=== PATIENT | male | born 1965 | race African-American/Black ===

== ENCOUNTER 2022-02-26 20:15 | Inpatient (IN) ==
--- NOTE | 2022-02-26 20:37 | Emergency Department Note ---
Impression & Plan Syncope, Acute head trauma, Anemia, YEVGENIY (acute kidney injury), Elevated liver enzymes ED Provider Note NAME: RASHIDA [id number] VINCENT AGE: 56 SEX: M : 1965 ARRIVES VIA: Ambulance INFORMANT: [Patient] ED PROVIDER(S): [Tiago Roberts MD] CHIEF COMPLAINT: Syncope, abnormal labs HISTORY OF PRESENT ILLNESS: The patient is a 56-year-old male [facility] a few days and he has not had a great appetite. The patient was standing today doing some work when he apparently fell backwards and struck his head. He had a brief syncopal event. He denied any chest pain during this syncopal episode. He cannot recall feeling lightheaded or faint. Patient has no current headache. After the event, he felt okay. Patient did go to the [facility]. He was given IV saline. He was noted to be orthostatic. He was found to have a high white blood cell count, low hemoglobin, high bilirubin and high creatinine. He was sent to the ER for evaluation and further work-up. The patient denies any diarrhea, he denies cough or congestion or shortness of breath. There is no abdominal pain. He has not had a fever. The patient was never told in the past that he was anemic. No blood noted in the stool. As per the staff at the [facility], the patient has lost weight recently. REVIEW OF SYSTEMS: See HPI for pertinent positives and negatives. A total of ten systems were reviewed and were otherwise negative. PMHx/PSHx: See Below SOCIAL HISTORY: See Below. PHYSICAL EXAM: GENERAL: Patient is in no acute distress. HEENT: No acute trauma, normocephalic atraumatic, mucous membranes moist, no nasal congestion, mild scleral icterus. NECK: No stridor, no adenopathy, no meningismus, trachea is midline. LUNGS: Clear to auscultation bilaterally, no wheeze, no rhonchi, breath sounds equal. HEART: Without murmurs gallops or rubs, regular rate and rhythm. ABDOMEN: Soft, nontender, bowel sounds positive, no hernias, no peritonitis. EXTREMITIES: No cyanosis or edema, full range of motion of all the joints without pain or difficulty, no signs for acute trauma. NEUROLOGIC: Oriented x 3, no acute motor or sensory deficits, no focal weakness. SKIN: No rash, mild jaundice, no diaphoresis. Rectal: Brown stool, heme-negative. DIFFERENTIAL DIAGNOSIS: Infection, UTI, tickborne illness, diverticulitis, mono, dehydration, metabolic abnormality, hypo/hyperglycemia, electrolyte disturbance, anemia, hypoxia, cardiac sources, intracerebral event, intracranial bleed, toxicologic issues, stroke, TIA, dysrhythmia, renal or liver failure, malignancy, as well as other pathologies. EMERGENCY DEPARTMENT COURSE/PROCEDURES: ECG: Indication was syncope. The ECG shows a normal sinus rhythm with a rate of 66. There is no ST elevation, no PVCs. There is some nonspecific ST change. A potential old septal infarct was noted. The QTc is 425. Continuous Cardiac Monitoring: An order was placed for continuous cardiac monitoring. The monitor shows a rate of 68 with normal sinus rhythm. Critical Care Note: I have personally spent 42 minutes of critical care time in the direct management of this patient. This includes bedside care, inte rpretation of diagnostic studies, and testing, discussion with consultants, patient, and family members, and other required patient management activities. This 42 minutes is in excess of all separately billable procedures. MEDICAL DECISION MAKING: There is a mild leukocytosis at 14,000, this could be consistent with infection or the stress of his current situation. Patient is anemic with a hemoglobin of 8.7. This is a new finding for him. Rectal exam was performed and was heme- negative, the stool was brown. There is a normal platelet count. No coagulopathy. There is evidence for some acute kidney injury with a creatinine of 2.19. Lactic acid level was not elevated making severe sepsis less likely. Liver enzyme elevation was noted. Ammonia level was not elevated. ECG showed a normal sinus rhythm, no obvious ST elevation. Cardiac enzyme testing x1 was not consistent with acute cardiac injury. Patient appeared to be in a euthyroid state. Lyme disease testing was negative. Pima testing was negative. Covid testing was negative. Anaplasmosis and Babesia smears were both negative. Chest x-ray did not show pneumonia or CHF. Brain CT showed no acute bleed or mass-effect. Abdominal CT did not show evidence for hydronephrosis or for acute solid organ injury. No bowel obstruction. No infectious process by CT imaging. On exam, the patient appeared slightly jaundiced. The patient received IV saline, 1 L. The patient presents with syncope. He was found to be anemic, he has acute kidney injury with liver enzyme elevation. The cause for these findings is all currently unclear. I do think a hospital stay and further work-up is warranted. I spoke with the patient, I spoke with the guards. I spoke with case management. The on-call hospitalist was consulted. Past Med/Surg History Medical History Hypertension Social History Smoking Status: Unknown if ever smoked Feels Safe at Home: Yes Allergies Allergies Allergy/AdvReac Type Severity Reaction Status Date / Time No Known Allergies Allergy Verified 02/26/22 20:34 Home Meds Home Medications Medication Instructions Recorded Confirmed amlodipine 10 mg tablet 10 mg PO DAILY 01/12/21 02/26/22 lisinopril 40 mg tablet 40 mg PO DAILY 01/12/21 02/26/22 aspirin 81 mg chewable tablet 81 mg PO DAILY 02/26/22 02/26/22 atenolol 100 mg tablet 100 mg PO DAILY 02/26/22 02/26/22 atorvastatin 40 mg tablet 40 mg PO HS 02/26/22 02/26/22 spironolactone 25 1 tab PO DAILY 02/26/22 02/26/22 mg-hydrochlorothiazide 25 mg tablet Results & Data (ED) Vital Signs Vital Signs - 24 hr 02/26/22 20:24 02/26/22 20:56 Temperature 37.5 C Temperature Source Oral Pulse Rate 67 66 Pulse Rhythm Regular Respiratory Rate 16 18 Respiratory Effort / Characteristics Non-Labored Respiratory Depth Normal Respiratory Pattern Regular Blood Pressure 117/67 Blood Pressure Mean 83 Blood Pressure Position Sitting Pulse Oximetry 97 Oxygen Delivery Method Room Air Room Air Sepsis Recent Fever Within 48 Hours No Sepsis New/Unexplained Change in Mental Status No Sepsis Action Taken by Nursing No Action Required Home Medications Current Medication List: was personally reviewed by me Laboratory Data Attestation: I reviewed the patient's lab results. Result diagrams: 02/26/22 20:53 02/26/22 20:53 Lab Results 02/26/22 02/26/22 02/26/22 Range/Units 20:53 20:53 20:53 WBC 14.35 H (4.8-10.8) K/uL RBC 2.80 L (4.7-6.1) M/uL Hgb 8.7 L (14.0-18.0) g/dL Hct 23.1 L (42-52) % MCV 82.5 (80-100) fL MCH 31.1 (25-34) pg MCHC 37.7 H (32-36) g/dL RDW Std Deviation 39.6 (36.4-46.3) fL RDW Coeff of Razia 13.0 (11.5-14.5) % Plt Count 304 (130-400) K/uL MPV 10.9 H (7.4-10.4) fL Immature Gran % (Auto) 0.4 % Neut % (Auto) 80.1 % Lymph % (Auto) 16.2 % Pima % (Auto) 3.1 % Eos % (Auto) 0.1 % Baso % (Auto) 0.1 % Neut # (Auto) 11.47 H (1.4-6.5) K/uL Lymph # (Auto) 2.33 (1.2-3.4) K/uL Pima # (Auto) 0.45 (0.11-0.59) K/uL Eos # (Auto) 0.02 (0-0.5) K/uL Baso # (Auto) 0.02 (0-0.2) K/uL Immature Gran # (Auto) 0.06 H (0.00-0.02) K/uL PT 10.7 (9.0-12.0) Seconds INR 1.0 (0.9-1.1) APTT 29.6 (21.0-31.0) Seconds PTT Ratio 1.1 Sodium 136 (136-145) mmol/L Potassium 3.9 (3.5-5.1) mmol/L Chloride 101 (98-107) mmol/L Carbon Dioxide 25 (21-32) mmol/L Anion Gap 10 (3-11) BUN 69 H (6-23) mg/dl Creatinine 2.19 H D (0.6-1.4) mg/dl Est Cr Clr Drug Dosing 44.5 ml/min Est GFR ( Amer) 37.4 ml/min Est GFR (Non-Af Amer) 32.2 ml/min BUN/Creatinine Ratio 31.5 H (10-20) Glucose 230 H (70-99(Fasting)) mg/dl Lactate (0.4-2.0) mmol/L Calcium 8.7 (8.5-10.1) mg/dl Magnesium 2.9 H (1.7-2.4) mg/dl Total Bilirubin 1.8 H (0.2-1.0) mg/dl AST 111 H (13-39) U/L ALT 89 H (7-52) U/L Alkaline Phosphatase 83 (34-104) U/L Ammonia (18-72) umol/L Total Creatine Kinase 74 (30-223) U/L Troponin I < 0.03 (0-0.04) ng/ml Total Protein 7.7 (6.0-8.3) gm/dl Albumin 3.4 (3.4-5.0) gm/dl Globulin 4.3 H (2.5-4.0) gm/dl Albumin/Globulin Ratio 0.8 L (0.9-2) TSH (0.300-4.500) uIu/ml Anaplasma Smear See Comment Babesia Smear See Comment Lyme Disease IgG Ab (Negative) Lyme Disease IgM Ab (Negative) Monoscreen (Negative) SARS-CoV-2, RNA, NAAT (NEGATIVE) 02/26/22 02/26/22 02/26/22 Range/Units 20:53 20:53 20:53 WBC (4.8-10.8) K/uL RBC (4.7-6.1) M/uL Hgb (14.0-18.0) g/dL Hct (42-52) % MCV (80-100) fL MCH (25-34) pg MCHC (32-36) g/dL RDW Std Deviation (36.4-46.3) fL RDW Coeff of Razia (11.5-14.5) % Plt Count (130-400) K/uL MPV (7.4-10.4) fL Immature Gran % (Auto) % Neut % (Auto) % Lymph % (Auto) % Pima % (Auto) % Eos % (Auto) % Baso % (Auto) % Neut # (Auto) (1.4-6.5) K/uL Lymph # (Auto) (1.2-3.4) K/uL Pima # (Auto) (0.11-0.59) K/uL Eos # (Auto) (0-0.5) K/uL Baso # (Auto) (0-0.2) K/uL Immature Gran # (Auto) (0.00-0.02) K/uL PT (9.0-12.0) Seconds INR (0.9-1.1) APTT (21.0-31.0) Seconds PTT Ratio Sodium (136-145) mmol/L Potassium (3.5-5.1) mmol/L Chloride (98-107) mmol/L Carbon Dioxide (21-32) mmol/L Anion Gap (3-11) BUN (6-23) mg/dl Creatinine (0.6-1.4) mg/dl Est Cr Clr Drug Dosing ml/min Est GFR ( Amer) ml/min Est GFR (Non-Af Amer) ml/min BUN/Creatinine Ratio (10-20) Glucose (70-99(Fasting)) mg/dl Lactate 1.1 (0.4-2.0) mmol/L Calcium (8.5-10.1) mg/dl Magnesium (1.7-2.4) mg/dl Total Bilirubin (0.2-1.0) mg/dl AST (13-39) U/L ALT (7-52) U/L Alkaline Phosphatase (34-104) U/L Ammonia 27.0 (18-72) umol/L Total Creatine Kinase (30-223) U/L Troponin I (0-0.04) ng/ml Total Protein (6.0-8.3) gm/dl Albumin (3.4-5.0) gm/dl Globulin (2.5-4.0) gm/dl Albumin/Globulin Ratio (0.9-2) TSH 0.430 (0.300-4.500) uIu/ml Anaplasma Smear Babesia Smear Lyme Disease IgG Ab (Negative) Lyme Disease IgM Ab (Negative) Monoscreen (Negative) SARS-CoV-2, RNA, NAAT (NEGATIVE) 02/26/22 02/26/22 Range/Units 20:53 21:26 WBC (4.8-10.8) K/uL RBC (4.7-6.1) M/uL Hgb (14.0-18.0) g/dL Hct (42-52) % MCV (80-100) fL MCH (25-34) pg MCHC (32-36) g/dL RDW Std Deviation (36.4-46.3) fL RDW Coeff of Razia (11.5-14.5) % Plt Count (130-400) K/uL MPV (7.4-10.4) fL Immature Gran % (Auto) % Neut % (Auto) % Lymph % (Auto) % Pima % (Auto) % Eos % (Auto) % Baso % (Auto) % Neut # (Auto) (1.4-6.5) K/uL Lymph # (Auto) (1.2-3.4) K/uL Pima # (Auto) (0.11-0.59) K/uL Eos # (Auto) (0-0.5) K/uL Baso # (Auto) (0-0.2) K/uL Immature Gran # (Auto) (0.00-0.02) K/uL PT (9.0-12.0) Seconds INR (0.9-1.1) APTT (21.0-31.0) Seconds PTT Ratio Sodium (136-145) mmol/L Potassium (3.5-5.1) mmol/L Chloride (98-107) mmol/L Carbon Dioxide (21-32) mmol/L Anion Gap (3-11) BUN (6-23) mg/dl Creatinine (0.6-1.4) mg/dl Est Cr Clr Drug Dosing ml/min Est GFR ( Amer) ml/min Est GFR (Non-Af Amer) ml/min BUN/Creatinine Ratio (10-20) Glucose (70-99(Fasting)) mg/dl Lactate (0.4-2.0) mmol/L Calcium (8.5-10.1) mg/dl Magnesium (1.7-2.4) mg/dl Total Bilirubin (0.2-1.0) mg/dl AST (13-39) U/L ALT (7-52) U/L Alkaline Phosphatase (34-104) U/L Ammonia (18-72) umol/L Total Creatine Kinase (30-223) U/L Troponin I (0-0.04) ng/ml Total Protein (6.0-8.3) gm/dl Albumin (3.4-5.0) gm/dl Globulin (2.5-4.0) gm/dl Albumin/Globulin Ratio (0.9-2) TSH (0.300-4.500) uIu/ml Anaplasma Smear Babesia Smear Lyme Disease IgG Ab Negative (Negative) Lyme Disease IgM Ab Negative (Negative) Monoscreen Negative (Negative) SARS-CoV-2, RNA, NAAT NEGATIVE (NEGATIVE) Administered Medications Discontinued Medications Sodium Chloride (Nss 1000ml) 1,000 mls @ 999 mls/hr IV .[id number] Stop: 02/26/22 21:45 Last Admin: 02/26/22 21:32 Dose: 999 mls/hr Documented by: [id number] Imaging Data Radiologist's Impression: Chest X-Ray 02/26/22 20:32 XR chest 1V portable CLINICAL HISTORY: weakness COMPARISON STUDY: Chest radiograph January 12, 2021. FINDINGS: Lung volumes are normal. Lungs are clear. There is no pneumothorax or pleural effusion. Cardiac size is normal. Mediastinal contours are normal. There is no evidence for pulmonary edema. Nipple shadows project over the lungs. IMPRESSION: No acute cardiopulmonary findings. ACT 112: Negative or not required by law. Electronically signed by: Tony Clifford M.D. 02/26/2022 8:[address] without contrast: There is no acute intracranial abnormality. Abdominal and pelvis CT without contrast: Unremarkable appearance of the right kidney. The left kidney has a cyst measuring 7.5 cm. There is no obstructive uropathy. The remainder of the organs are unremarkable. Normal appendix. No acute abnormality along the GI tract. Discharge Plan Visit Data Chief Complaint: Head Injury, Minor ED Provider: Tiago Roberts Discharge Problem: Syncope, Acute head trauma, Anemia, YEVGENIY (acute kidney injury), Elevated liver enzymes Patient Disposition: Admitted As Inpatient Condition: Fair Forms Stand Alone Forms: [facility] Prescriptions Prescriptions: No Action amlodipine 10 mg Tablet 10 mg PO DAILY RF: 0 lisinopril 40 mg Tablet 40 mg PO DAILY RF: 0 atorvastatin 40 mg Tablet 40 mg PO HS RF: 0 atenolol 100 mg Tablet 100 mg PO DAILY RF: 0 spironolacton-hydrochlorothiaz 25-25 mg Tablet 1 tab PO DAILY RF: 0 aspirin 81 mg Tablet,Chewable 81 mg PO DAILY RF: 0 Referrals Referrals: Rayne HO [Primary Care Provider] -
[2022-02-26] MEDS ORDERED: SODIUM CHLORIDE 0.9% 1000ML 1,000 ML IV SCH (20:45)
--- NOTE | 2022-02-26 20:51 | XRay Report ---
XR chest 1V portable CLINICAL HISTORY: weakness COMPARISON STUDY: Chest radiograph January 12, 2021. FINDINGS: Lung volumes are normal. Lungs are clear. There is no pneumothorax or pleural effusion. Car diac size is normal. Mediastinal contours are normal. There is no evidence for pulmonary edema. Nippl e shadows project over the lungs. IMPRESSION: No acute cardiopulmonary findings. ACT 112: Negative or not required by law. Electronically signed by: Tony Clifford M.D. 02/26/2022 8:50 PM
[2022-02-26 21:10] LABS: Hematocrit (blood only) 23.1 % (42-52); Hemoglobin 8.7 g/dL (14.0-18.0); Mean Corpuscular Hemoglobin 31.1 pg (25-34); Mean Corpuscular Hgb Conc 37.7 g/dL (32-36); Mean Corpuscular Volume 82.5 fL (80-100); Mean Platelet Volume 10.9 fL (7.4-10.4); Platelet Count 304 K/uL (130-400); RDW Standard Deviation 39.6 fL (36.4-46.3); White Blood Count 14.35 K/uL (4.8-10.8)
[2022-02-26 21:20] LABS: Partial Thromboplastin Ratio 1.1; Partial Thromboplastin Time 29.6 Seconds (21.0-31.0); Prothrombin Time 10.7 Seconds (9.0-12.0)
[2022-02-26 21:31] LABS: Troponin I < 0.03 ng/ml (0-0.04)
[2022-02-26 21:32] LABS: Basophils # (auto) 0.02 K/uL (0-0.2); Basophils % (auto) 0.1 %; Eosinophils # (auto) 0.02 K/uL (0-0.5); Eosinophils % (auto) 0.1 %; Immature Granulocytes # (auto) 0.06 K/uL (0.00-0.02); Immature Granulocytes % (auto) 0.4 %; Lymphocytes # (auto) 2.33 K/uL (1.2-3.4); Lymphocytes % (auto) 16.2 %; Monocytes # (auto) 0.45 K/uL (0.11-0.59); Monocytes % (auto) 3.1 %; Neutrophils # (auto) 11.47 K/uL (1.4-6.5); Neutrophils % (auto) 80.1 %
[2022-02-26 21:36] LABS: Monotest Negative (Negative)
[2022-02-26 21:39] LABS: Alanine Aminotransferase 89 U/L (7-52); Albumin Globulin Ratio 0.8 (0.9-2); Albumin Level 3.4 gm/dl (3.4-5.0); Alkaline Phosphatase 83 U/L (34-104); Anion Gap 10 (3-11); Aspartate Aminotransferase 111 U/L (13-39); BUN Creatinine Ratio 31.5 (10-20); Bilirubin,Total 1.8 mg/dl (0.2-1.0); Blood Urea Nitrogen 69 mg/dl (6-23); Calcium 8.7 mg/dl (8.5-10.1); Carbon Dioxide 25 mmol/L (21-32); Chloride 101 mmol/L (98-107); Creatine Kinase 74 U/L (30-223); Creatinine Clr Calc Pharmacy 44.5 ml/min; Est GFR (African American) 37.4 ml/min; Est GFR (Non-African American) 32.2 ml/min; Globulin 4.3 gm/dl (2.5-4.0); Glucose 230 mg/dl (70-99(Fasting)); Magnesium 2.9 mg/dl (1.7-2.4); Potassium 3.9 mmol/L (3.5-5.1); Sodium 136 mmol/L (136-145); Total Protein 7.7 gm/dl (6.0-8.3)
[2022-02-26 22:07] LABS: Lyme Ab IgG w/WB Rflx Negative (Negative); Lyme Ab IgM w/WB Rflx Negative (Negative)
--- NOTE | 2022-02-26 23:29 | History & Physical Report ---
Date of Service February 26, 2022 Assessment & Plan (1) Syncope: Plan: Patient with syncopal event which occurred while lifting a heavy box. Has not been feeling well or eating for the last 5 days - appears quite dehydrated on both physical exam and labs. Suspect orthostatic syncope. Upon review of his chart from [facility] he as a diagnosis of "Cardiac Aneurysm" - when asked, patient does not know of this history. He denies any cardiac history. Presently without symptoms. Orthostatic VS POSITIVE at [facility] -Admission to medical with telemetry -Check 2D echo -Fall precautions -IVF as below (2) Acute head trauma: Plan: Patient hit head during his fall today. No GOODWIN, visual disturbance, nausea or neurological deficits. He is on ASA, no blood thinners. No focal deficits, spinal tenderness. No need for c-spine imaging by NEXUS criteria CT Head Negative for acute trauma -Neuro checks with GCS q shift (3) Anemia: Plan: Normochromic/normocytic anemia with Hgb=8.7, Hct=23.1. Patient denies previous history of anemia. No personal or family history of sickle cell disease, SS trait or thalassemia. Patient denies blood loss in the form of melena/hematochezia, hematuria or bruising. Elevated Tbili of 1.8, ?hemolysis. YEVGENIY present - platelets are normal. Patient reports having a colonoscopy around 6 years ago which was Negative. Heme NEG stools in ER. -Check iron studies -Check B12 and Folate -Check peripheral smear -Check LFTs (direct vs indirect bili) in AM -Check LDH -CBC in AM -Patient consented for transfusion - will give blood if symptomatic anemia, evidence of active bleed or Hgb <7 (4) YEVGENIY (acute kidney injury): Plan: Elevated BUN and Cr. Suspect multifactorial - patient appears very dehydrated on exam in setting of decreased oral intake. Also on Lisinopril, Spironolactone and HCTZ. He states he may have missed two days of medications while feeling ill. Cr has improved with IVF - 3.09 to 2.19. Was previously normal on 01/12/21 at 0.97. CK is normal -UA ordered - has yet to be collected -LR at 125mL/hr x 2 liters -Avoid nephrotoxic agents -Renal dosing where available -Repeat chemistry in AM (5) Elevated liver enzymes: Plan: TQH=868, ALT=89, Tbili=1.[address] Abdomen unremarkable. Etiology uncertain. -Repeat LFTs in AM (6) Elevated random blood glucose level: Plan: Blood sugar of 230. No previous history of DM -Check A1C -Fingersticks -ISS, goal 100 - 140 Plan: F/E/N - LR at 125mL/hr x 2 liters, electrolytes WNL, Regular diet as tolerated Ppx - Low risk for DVT Code - Full per discussion with patient Dispo - Admit to medical with telemetry History of Present Illness Chief Complaint: Syncope Primary Care Provider: [place] [facility] James Plummer is a 56yo male inmate from [facility] presenting after a syncopal event. Patient reports he has not felt well for the last 5 days. He has had poor appetite and decreased oral intake. He was lifting boxes this afternoon when he passed out. He fell backwards from a standing position and hit the back of his head against a metal pipe. He is uncertain how long he was unconscious. Witnesses did not mention seizure activity. No incontinence or tongue biting. When patient woke up he states he felt well - denies headache, neck pain, visual disturbance, chest pain, palpitations, abdominal pain, nausea or vomiting. He was taken to the [facility] and had blood work drawn which revealed anemia, elevated Cr and elevated LFTs. Orthostatic VS were POSITIVE - patient became q uite hypotensive with standing with SBP in the 70's. He was given IVF with improvement in laboratory parameters. Patient denies trouble chewing/swallowing. Denies fever, chills, night sweats. Denies chest pain, palpitations, cough, SOB, abdominal pain, RUQ pain, nausea, vomiting, diarrhea or constipation. Denies jaundice, icterus, acholic stools. He does endorse a 10# weight loss over the last 5 days as well as dark colored urine No sick contacts Reports having a colonoscopy around age 49 which was normal In the ER patient afebrile, HD stable. ER Course: NSS x 1L, Rectal with brown stool - Heme NEGATIVE Allergies Allergy/AdvReac Type Severity Reaction Status Date / Time No Known Allergies Allergy Verified 02/26/22 20:34 Home Medications Medication Instructions Recorded Confirmed Type amlodipine 10 mg tablet 10 mg PO DAILY 01/12/21 02/26/22 History lisinopril 40 mg tablet 40 mg PO DAILY 01/12/21 02/26/22 History aspirin 81 mg chewable tablet 81 mg PO DAILY 02/26/22 02/26/22 History atenolol 100 mg tablet 100 mg PO DAILY 02/26/22 02/26/22 History atorvastatin 40 mg tablet 40 mg PO HS 02/26/22 02/26/22 History spironolactone 25 1 tab PO DAILY 02/26/22 02/26/22 History mg-hydrochlorothiazide 25 mg tablet Past Med/Surg History Medical History Hypertension Surgical History (Updated 02/27/22 @ 01:11 by Isaura Wolff DO) No significant past surgical history Family History (Updated 02/27/22 @ 01:11 by Isaura Wolff DO) Other Hypertension Social History (Updated 02/27/22 @ 01:11 by Isaura Wolff DO) Smoking Status: Unknown if ever smoked Hx Alcohol Use: No Hx Substance Use: No Feels Safe at Home: Yes Review of Systems Review of Systems: All systems reviewed & are unremarkable except as noted in HPI & below Physical Exam Physical Exam: General: patient resting comfortably, NAD, chronically ill and cachectic appearing, AA&O x 4 Skin: warm, dry, intact, no rashes or lesions HEENT: NC/AT, PERRL, EOMI, mild scleral icterus, conjunctiva without injection, external ear normal to inspection and nontender, nares patent, very dry mucus membranes with lip cracking, dentition intact, no oropharyngeal lesions, neck supple, no c-spine tenderness, trachea midline, no LAD, no thyromegaly, no JVD Heart: +S1/S2, regular, no m/r/g Lungs: equal air entry bilaterally, no rales/rhonchi/wheezes Abd: +BS, soft, NT/ND, no masses/organomegaly/ascites, no RUQ tenderness, Negative Morris's sign Ext: warm, 2+ pulses in UE/LE bilaterally, no clubbing/cyanosis or edema Neuro: nonfocal, patient AA&O x 4, speech intact, no facial droop, moving all extremities on command with equal strength 5/5 Results & Data Results & Data ([place]) Vital Signs (Past 12 Hours) Vital Signs Temp Pulse Resp BP BP Pulse Ox 02/26/22 22:40 19 129/76 99 02/26/22 20:56 66 18 02/26/22 20:24 37.5 C 67 16 117/67 97 Laboratory Results Laboratory Results WBC 14.35 K/uL (4.8-10.8) H 02/26/22 20:53 RBC 2.80 M/uL (4.7-6.1) L 02/26/22 20:53 Hgb 8.7 g/dL (14.0-18.0) L 02/26/22 20:53 Hct 23.1 % (42-52) L 02/26/22 20:53 MCV 82.5 fL (80-100) 02/26/22 20:53 MCH 31.1 pg (25-34) 02/26/22 20:53 MCHC 37.7 g/dL (32-36) H 02/26/22 20:53 RDW Std Deviation 39.6 fL (36.4-46.3) 02/26/22 20:53 RDW Coeff of Razia 13.0 % (11.5-14.5) 02/26/22 20:53 Plt Count 304 K/uL (130-400) 02/26/22 20:53 MPV 10.9 fL (7.4-10.4) H 02/26/22 20:53 Immature Gran % (Auto) 0.4 % 02/26/22 20:53 Neut % (Auto) 80.1 % 02/26/22 20:53 Lymph % (Auto) 16.2 % 02/26/22 20:53 Valencia % (Auto) 3.1 % 02/26/22 20:53 Eos % (Auto) 0.1 % 02/26/22 20:53 Baso % (Auto) 0.1 % 02/26/22 20:53 Neut # (Auto) 11.47 K/uL (1.4-6.5) H 02/26/22 20:53 Lymph # (Auto) 2.33 K/uL (1.2-3.4) 02/26/22 20:53 Valencia # (Auto) 0.45 K/uL (0.11-0.59) 02/26/22 20:53 Eos # (Auto) 0.02 K/uL (0-0.5) 02/26/22 20:53 Baso # (Auto) 0.02 K/uL (0-0.2) 02/26/22 20:53 Immature Gran # (Auto) 0.06 K/uL (0.00-0.02) H 02/26/22 20:53 PT 10.7 Seconds (9.0-12.0) 02/26/22 20:53 INR 1.0 (0.9-1.1) 02/26/22 20:53 APTT 29.6 Seconds (21.0-31.0) 02/26/22 20:53 PTT Ratio 1.1 02/26/22 20:53 Sodium 136 mmol/L (136-145) 02/26/22 20:53 Potassium 3.9 mmol/L (3.5-5.1) 02/26/22 20:53 Chloride 101 mmol/L (98-107) 02/26/22 20:53 Carbon Dioxide 25 mmol/L (21-32) 02/26/22 20:53 Anion Gap 10 (3-11) 02/26/22 20:53 BUN 69 mg/dl (6-23) H 02/26/22 20:53 Creatinine 2.19 mg/dl (0.6-1.4) H D 02/26/22 20:53 Est Cr Clr Drug Dosing 44.5 ml/min 02/26/22 20:53 Est GFR ( Amer) 37.4 ml/min 02/26/22 20:53 Est GFR (Non-Af Amer) 32.2 ml/min 02/26/22 20:53 BUN/Creatinine Ratio 31.5 (10-20) H 02/26/22 20:53 Glucose 230 mg/dl (70-99(Fasting)) H 02/26/22 20:53 Lactate 1.1 mmol/L (0.4-2.0) 02/26/22 20:53 Calcium 8.7 mg/dl (8.5-10.1) 02/26/22 20:53 Magnesium 2.9 mg/dl (1.7-2.4) H 02/26/22 20:53 Total Bilirubin 1.8 mg/dl (0.2-1.0) H 02/26/22 20:53 AST 111 U/L (13-39) H 02/26/22 20:53 ALT 89 U/L (7-52) H 02/26/22 20:53 Alkaline Phosphatase 83 U/L (34-104) 02/26/22 20:53 Ammonia 27.0 umol/L (18-72) 02/26/22 20:53 Total Creatine Kinase 74 U/L (30-223) 02/26/22 20:53 Troponin I < 0.03 ng/ml (0-0.04) 02/26/22 20:53 Total Protein 7.7 gm/dl (6.0-8.3) 02/26/22 20:53 Albumin 3.4 gm/dl (3.4-5.0) 02/26/22 20:53 Globulin 4.3 gm/dl (2.5-4.0) H 02/26/22 20:53 Albumin/Globulin Ratio 0.8 (0.9-2) L 02/26/22 20:53 TSH 0.430 uIu/ml (0.300-4.500) 02/26/22 20:53 Anaplasma Smear See Comment 02/26/22 20:53 Babesia Smear See Comment 02/26/22 20:53 Lyme Disease IgG Ab Negative (Negative) 02/26/22 20:53 Lyme Disease IgM Ab Negative (Negative) 02/26/22 20:53 Monoscreen Negative (Negative) 02/26/22 20:53 SARS-CoV-2, RNA, NAAT NEGATIVE (NEGATIVE) 02/26/22 21:26 Impressions Chest X-Ray 02/26/22 20:32 XR chest 1V portable CLINICAL HISTORY: weakness COMPARISON STUDY: Chest radiograph January 12, 2021. FINDINGS: Lung volumes are normal. Lungs are clear. There is no pneumothorax or pleural effusion. Cardiac size is normal. Mediastinal contours are normal. There is no evidence for pulmonary edema. Nipple shadows project over the lungs. IMPRESSION: No acute cardiopulmonary findings. ACT 112: Negative or not required by law. Electronically signed by: Tony Clifford M.D. 02/26/2022 8:[address] Abdomen and Pelvis - Per STAT rad - Unremarkable appearance of the right kidn ey. Pelvic left kidney with a cyst measuring 7.5cm, No evidence of obstructive uropathy. Remainder o the organs are unremarkable. No acute abnormality along the GI tract. Normal appendix. Colonic diverticulosis. CT Head - Per STAT rad - no acute intracranial abnormality ECG Additional Comments: EKG with NSR at 66, normal axis, UL=889, QRS=90, VHs=386, poor R-wave progression, Twave nonspecific changes Code Status & VTE Plan VTE Prophylaxis Plan VTE Prophylaxis will be ordered: No PG Care Time/CCT Total # of Minutes Spent Total Time Spent with Patient: Total time spent is greater than 50% in coordination of care (as documented) at patient's floor/unit and/or counseling patient: Coding Level of Care Code 31676 Initial Inpt Care Lvl 3 Diagnoses Syncope R55 Syncope type: unspecified Acute head trauma S09.90XA Encounter type: initial encounter Anemia D64.9 Anemia type: unspecified type YEVGENIY (acute kidney injury) N17.9 Elevated liver enzymes R74.8 Elevated random blood glucose level R73.09 (1) Syncope Syncope type: unspecified Qualified Code(s): R55 - Syncope and collapse (2) Acute head trauma Encounter type: initial encounter Qualified Code(s): S09.90XA - Unspecified injury of head, initial encounter (3) Anemia Anemia type: unspecified type Qualified Code(s): D64.9 - Anemia, unspecified
[2022-02-27] MEDS ORDERED: GLUCOSE 10 TABS/TUBE PO PRN (01:30)
[2022-02-27] MEDS ORDERED: ONDANSETRON INJ 2 MG/ML 2 ML VIAL IV PRN (01:30)
[2022-02-27] MEDS ORDERED: GLUCAGON FOR INJ 1 MG VIAL SQ PRN (01:30)
[2022-02-27] MEDS ORDERED: DEXTROSE 50% 50 ML SYRINGE IV PRN (01:30)
[2022-02-27] MEDS ORDERED: ACETAMINOPHEN 325 MG TAB PO PRN (01:30)
[2022-02-27] MEDS ORDERED: CARBOHYDRATES FOR HYPOGLYCEMIA PO PRN (01:30)
[2022-02-27] MEDS ORDERED: GLUCOSE 40% GEL 15 GM TUBE PO PRN (01:30)
[2022-02-27] MEDS: LACTATED RINGER'S 1,000 ML IV SCH ×2 (01:55→09:15)
[2022-02-27 02:04] LABS: Appearance Urine Clear (Clear); Bacteria Urine Automated 4+ (Negative); Bilirubin Urine Negative (Negative); Blood Urine Trace (Negative); Cast Urine Automated 0 /lpf (0-5); Color Urine Yellow; Glucose Urine UA Negative (Negative); Ketones Urine Negative (Negative); Leukocyte Esterase Urine Trace (Negative); Nitrite Urine Positive (Negative); Protein Urine Trace (Negative); RBC Urine Automated 0-4 /hpf (0-4); Specific Gravity Urine 1.016 (1.000-1.030); Urobilinogen Urine Negative (Negative)
[2022-02-27] MEDS: INSULIN ASPART PER UNIT SC SCH ×5 (02:09→21:00)
[2022-02-27 03:19] LABS: Folate (Folic Acid) 14.95 ng/ml (>5.38)
[2022-02-27 06:18] LABS: Basophils # (auto) 0.02 K/uL (0-0.2); Basophils % (auto) 0.2 %; Eosinophils # (auto) 0.01 K/uL (0-0.5); Eosinophils % (auto) 0.1 %; Hematocrit (blood only) 22.6 % (42-52); Hemoglobin 8.3 g/dL (14.0-18.0); Immature Granulocytes # (auto) 0.07 K/uL (0.00-0.02); Immature Granulocytes % (auto) 0.6 %; Lymphocytes # (auto) 1.35 K/uL (1.2-3.4); Lymphocytes % (auto) 11.2 %; Mean Corpuscular Hemoglobin 30.3 pg (25-34); Mean Corpuscular Hgb Conc 36.7 g/dL (32-36); Mean Corpuscular Volume 82.5 fL (80-100); Mean Platelet Volume 10.9 fL (7.4-10.4); Monocytes # (auto) 1.81 K/uL (0.11-0.59); Neutrophils # (auto) 8.82 K/uL (1.4-6.5); Neutrophils % (auto) 72.9 %; Platelet Count 305 K/uL (130-400); RDW Standard Deviation 39.6 fL (36.4-46.3); Red Blood Count 2.74 M/uL (4.7-6.1); White Blood Count 12.08 K/uL (4.8-10.8)
[2022-02-27 06:49] LABS: Troponin I < 0.03 ng/ml (0-0.04)
[2022-02-27 06:54] LABS: Alanine Aminotransferase 105 U/L (7-52); Albumin Level 3.1 gm/dl (3.4-5.0); Alkaline Phosphatase 74 U/L (34-104); Anion Gap 6 (3-11); Aspartate Aminotransferase 131 U/L (13-39); BUN Creatinine Ratio 32.5 (10-20); Bilirubin Direct 0.6 mg/dl (0-0.2); Bilirubin,Total 1.6 mg/dl (0.2-1.0); Blood Urea Nitrogen 55 mg/dl (6-23); Calcium 8.5 mg/dl (8.5-10.1); Carbon Dioxide 26 mmol/L (21-32); Chloride 105 mmol/L (98-107); Creatinine Clr Calc Pharmacy 53.6 ml/min; Est GFR (African American) 51.1 ml/min; Est GFR (Non-African American) 44.1 ml/min; Glucose 173 mg/dl (70-99(Fasting)); Potassium 4.2 mmol/L (3.5-5.1); Sodium 137 mmol/L (136-145); Total Protein 7.3 gm/dl (6.0-8.3)
--- NOTE | 2022-02-27 07:40 | CT Scan Report ---
CT head/brain wo con CLINICAL HISTORY: fall, hit head Technique: Contiguous axial CT images of the head were acquired from the base of the skull to the rebekah laurent without intravenous contrast administration. Images were viewed in brain, subdural and bone [facility]. Automated dose lowering techniques and/or adjustment according to patient size were utilized for this exam. Comparison: None available at the time of this dictation. Findings: The ventricles, basal cisterns, and cerebral sulci are normal. There is no acute intracranial hemorrh age or evidence of acute territorial infarction. Neither mass effect, shift of the midline structures , nor abnormal extra-axial fluid collections are shown. Imaged portions of the paranasal sinuses and mastoid air cells are clear. The orbits appear normal. There are no acute fractures of the calvaria or scalp swelling. Impression: No acute intracranial hemorrhage, no evidence of acute territorial infarction or other acute intracra nial disease process. ACT 112: Negative or not required by law. Electronically signed by: Ricky Hu M.D. 02/27/2022 7:38 AM
--- NOTE | 2022-02-27 07:47 | Hospitalist Progress Note ---
Date of Service February 27, 2022 Assessment & Plan (1) Syncope: Plan: Patient with syncopal event which occurred while lifting a heavy box. Has not been feeling well or eating for the last 5 days - appears quite dehydrated on both physical exam and labs. Suspect orthostatic syncope. Upon review of his chart from [facility] he as a diagnosis of "Cardiac Aneurysm" - when asked, patient does not know of this history. He denies any cardiac history. Presently without symptoms. Orthostatic VS POSITIVE at [facility] -Admission to medical with telemetry -Echocardiogram is normal mention of cardiac aneurysm as described above -Complete hydration stop IV fluid (2) Acute head trauma: Plan: Patient hit head during his fall today. No GOODWIN, visual disturbance, nausea or neurological deficits. He is on ASA, no blood thinners. No focal deficits, spinal tenderness. No need for c-spine imaging by NEXUS criteria CT Head Negative for acute trauma -Neuro checks with GCS q shift (3) Anemia: Plan: Normochromic/normocytic anemia with Hgb=8.7, Hct=23.1. Patient denies previous history of anemia. No personal or family history of sickle cell disease, SS trait or thalassemia. Patient denies blood loss in the form of melena/hematochezia, hematuria or bruising. Elevated Tbili of 1.8, YEVGENIY present - platelets are normal. Patient reports having a colonoscopy around 6 years ago which was Negative. Heme NEG stools in ER. - iron studies, iron low normal, binding capacity low -normal B12 and Folate -unremarkable peripheral smear -bili mild elevation of direct and indirect with mild elevation of LFT, mono screen negative -normal LDH reduced likelihood of hemolysis -CBC in with lower hgb but stable in 8's -Patient consented for transfusion -if needed (4) YEVGENIY (acute kidney injury): Plan: Resolving Suspect multifactorial - patient appears very dehydrated on exam in setting of decreased oral intake. Also on Lisinopril, Spironolactone and HCTZ. He states he may have missed two days of medications while feeling ill. -UA abnormal for nitrate and le, with additional bacteria -continue LR for additional liter then stop (5) Elevated liver enzymes: Plan: YIZ=909, ALT=89, Tbili=1.[address] Abdomen unremarkable. Etiology uncertain. -Repeat LFTs persist (6) Elevated random blood glucose level: Plan: Blood sugar of 230. No previous history of DM, also lead to some dehydration -Check A1C pending -ISS, goal 100 - 140 Plan: F/E/N - LR at 125mL/hr x 2 liters, electrolytes WNL, Regular diet as tolerated Ppx - Low risk for DVT Code - Full per discussion with patient Dispo - Admit to medical with telemetry Admission and Anticipated Discharge Date Admission Date: February 27, 2022 Subjective Patient is no complaints or problems at this point time is no complaints of syncope or presyncopal symptoms. He says he does have appetite was able to tolerate oral intake today Review of Systems Review of Systems: Mild distress and fatigue no headache, no visual changes no speech or swallowing issues no chest pain, pressure or palpitations no shortness of breath, cough or wheezes no abdominal pain, nausea or vomiting, decreased appetite no dysuria, hematuria or frequency no focal joint pain or swelling no back pain, CVA tenderness or radicular pain no bruising, bleeding or rashes no focal signs of weakness or numbness or altered sensation no complaints of anxiety or depression.. Physical Exam Physical Exam: The patient appeared well nourished and normally developed. Vital signs as documented. Head exam is normocephalic atraumatic Neck is without JVD, thyromegaly, or carotid bruits. Lungs are clear to auscultation, no focal loss of breath sounds Cardiac exam, Rhythm is regular.. No murmurs, rubs or gallops. Abdominal exam reveals normal bowel sounds, soft non tender, no masses Extremities are nonedematous and both pedal pulses are present Neurologic exam is alert and oriented, no focal loss of strength or sensation Skin is without bruises or rashes Psychologically is without concerns for anxiety or depression.. Results & Data Results & Data ([facility]) Vital Signs (Past 12 Hours) Vital Signs Temp Pulse Pulse Resp BP BP Pulse Ox 02/27/22 03:10 98.4 F 64 16 94/58 L 98 02/27/22 01:43 100.4 F H 80 17 124/68 92 02/27/22 01:29 78 02/27/22 00:00 18 129/76 99 02/26/22 22:40 19 129/76 99 02/26/22 20:56 66 18 02/26/22 20:24 99.5 F 67 16 117/67 97 PG Care Time/CCT Total # of Minutes Spent Total Time Spent with Patient: Total time spent is greater than 50% in coordination of care (as documented) at patient's floor/unit and/or counseling patient: Coding Level of Care Code 00889 Subseq Hosp Care Lvl 2 Diagnoses Syncope R55 Syncope type: unspecified Acute head trauma S09.90XA Encounter type: initial encounter Anemia D64.9 Anemia type: unspecified type YEVGENIY (acute kidney injury) N17.9 Elevated liver enzymes R74.8 Elevated random blood glucose level R73.09 (1) Acute head trauma Encounter type: initial encounter Qualified Code(s): S09.90XA - Unspecified injury of head, initial encounter (2) Anemia Anemia type: unspecified type Qualified Code(s): D64.9 - Anemia, unspecified (3) Syncope Syncope type: unspecified Qualified Code(s): R55 - Syncope and collapse
--- NOTE | 2022-02-27 08:36 | CT Scan Report ---
CT OF THE ABDOMEN AND PELVIS WITHOUT CONTRAST CLINICAL HISTORY: evangelina, elevated liver enzymes COMPARISON STUDY: No previous studies for comparison. TECHNIQUE: Axial images of the abdomen and pelvis were obtained without IV contrast. Images were revi ewed in the axial, sagittal, and coronal planes. Automated exposure control was utilized for the tayo dy. A dose lowering technique was utilized adhering to the principles of ALARA. FINDINGS: Lung bases are unremarkable. No pneumatosis, free air or portal venous gas is present. Eval uation of the abdomen and pelvis is suboptimal on this unenhanced exam. Right kidney is unremarkable. There is no right hydronephrosis. Left pelvic kidney is noted. There is slight prominence of the lef t renal collecting system without hydronephrosis. There is mild left perinephric stranding. A 7.7 cm water attenuation lesion within the left kidney is noted. Suboptimally assessed on this unenhanced ex am but favors a cyst. Unenhanced images of liver, spleen, adrenal glands and pancreas are unremarkabl e. No biliary or pancreatic ductal dilatation is present. This colonic diverticulosis without evidenc e for acute diverticulitis. The appendix is normal. There is trace ascites within the left paracolic gutter. No fluid collection is suggest an abscess. No acute fracture or suspicious lesion within visu alized skeletal structures. There are a few prominent nodes adjacent to the aortic bifurcation. These measure up to 1 cm in short axis diameter. IMPRESSION: 1. Left pelvic kidney with mild perinephric stranding. This could be correlated with urinalysis. No s ignificant hydronephrosis. 2. 7.7 cm water attenuation left renal lesion. Although suboptimally assessed on this unenhanced exam , this probably reflects a cyst. 3. No bowel obstruction. No bowel wall thickening on unenhanced exam. 4. Trace ascites within the left paracolic gutter. 5. A few prominent lymph nodes adjacent to the aortic bifurcation, measuring up to 1 cm in short axis diameter. These are probably benign/reactive. A follow-up CT in 6 months could be obtained to ensure stability. ACT 112: Negative or not required by law. Electronically signed by: Tony Clifford M.D. 02/27/2022 8:35 AM
[2022-02-27] MEDS: ASPIRIN 81 MG ECTAB PO SCH (08:44)
[2022-02-27] MEDS ORDERED: amLODIPine BESYLATE 5 MG TAB PO SCH (09:00)
[2022-02-27] MEDS ORDERED: ATENOLOL 50 MG TABLET PO SCH (09:00)
--- NOTE | 2022-02-27 09:09 | XCELERA ---
[id number]
--- NOTE | 2022-02-27 09:46 | Electrocardiogram Report ---
Test Reason : Blood Pressure : / mmHG Vent. Rate : 066 BPM Atrial Rate : 066 BPM P-R Int : 142 ms QRS Dur : 090 ms QT Int : 406 ms P-R-T Axes : 071 035 007 degrees QTc Int : 425 ms Normal sinus rhythm Normal ECG When compared with ECG of 12-JAN-2021 09:40, No significant change Confirmed by Saud Simmons ([id number]) on 02/27/2022 9:46:03 AM Referred By: [facility] Confirmed By:Saud Simmons
[2022-02-27 14:34] LABS: Estimated Average Glucose 131 mg/dl; Hemoglobin A1C 6.2 % (4.5-5.6)
[2022-02-28] MEDS: ASPIRIN 81 MG ECTAB PO SCH (08:15)
[2022-02-28] MEDS: INSULIN ASPART PER UNIT SC SCH ×2 (08:17→12:41)
[2022-02-28 08:26] LABS: Hematocrit (blood only) 23.7 % (42-52); Hemoglobin 8.6 g/dL (14.0-18.0); Mean Corpuscular Hemoglobin 30.5 pg (25-34); Mean Corpuscular Hgb Conc 36.3 g/dL (32-36); Mean Platelet Volume 10.4 fL (7.4-10.4); Platelet Count 317 K/uL (130-400); RDW Coefficient of Variation 12.9 % (11.5-14.5); RDW Standard Deviation 39.8 fL (36.4-46.3); Red Blood Count 2.82 M/uL (4.7-6.1); Reticulocyte % 0.7 % (0.5-2.0); Reticulocytes # 0.02 10^6/uL (0.02-0.10); White Blood Count 11.32 K/uL (4.8-10.8)
[2022-02-28 08:45] LABS: Calcium 8.7 mg/dl (8.5-10.1); Creatinine Clr Calc Pharmacy 65.7 ml/min; Est GFR (African American) 65.3 ml/min; Est GFR (Non-African American) 56.4 ml/min; Potassium 4.3 mmol/L (3.5-5.1)
[2022-02-28] MEDS ORDERED: ATENOLOL 50 MG TABLET PO SCH (09:00)
[2022-02-28] MEDS ORDERED: cefTRIAXone SODIUM 1,000 MG in DEXTROSE 5% 50 ML IV SCH (09:15)
--- NOTE | 2022-02-28 11:06 | Ultrasound Report ---
US abdominal aortic aneurysm CLINICAL HISTORY: Abdominal aortic aneurysm. COMPARISON STUDY: CT of the abdomen and pelvis February 26, 2022. TECHNIQUE: Sonography of the abdominal aorta was performed. FINDINGS: The caliber of the abdominal aorta is normal. Proximal abdominal aorta measures 2.4 cm in c aliber. Mid abdominal aorta measures 2.1 cm and the distal abdominal aorta measures 2 cm. Aortic bifu rcation is obscured. IMPRESSION: Normal caliber abdominal aorta. ACT 112: Negative or not required by law. Electronically signed by: Tony Clifford M.D. 02/28/2022 11:04 AM
--- NOTE | 2022-02-28 15:34 | Discharge Summary ---
Date of Service February 28, 2022 Admission HPI Per Admitting Provider James Plummer is a 56yo male inmate from [facility] presenting after a syncopal event. Patient reports he has not felt well for the last 5 days. He has had poor appetite and decreased oral intake. He was lifting boxes this afternoon when he passed out. He fell backwards from a standing position and hit the back of his head against a metal pipe. He is uncertain how long he was unconscious. Witnesses did not mention seizure activity. No incontinence or tongue biting. When patient woke up he states he felt well - denies headache, neck pain, visual disturbance, chest pain, palpitations, abdominal pain, nausea or vomiting. He was taken to the [facility] and had blood work drawn which revealed anemia, elevated Cr and elevated LFTs. Orthostatic VS were POSITIVE - patient became quite hypotensive with standing with SBP in the 70's. He was given IVF with improvement in laboratory parameters. Patient denies trouble chewing/swallowing. Denies fever, chills, night sweats. Denies chest pain, palpitations, cough, SOB, abdominal pain, RUQ pain, nausea, vomiting, diarrhea or constipation. Denies jaundice, icterus, acholic stools. He does endorse a 10# weight loss over the last 5 days as well as dark colored urine No sick contacts Reports having a colonoscopy around age 49 which was normal In the ER patient afebrile, HD stable. ER Course: NSS x 1L, Rectal with brown stool - Heme NEGATIVE Principal Diagnosis syncope due to orthostatic bp from medication E coli uti coronary and aortic aneurysm ruled out Discharge Exam The patient appeared well Vital signs as documented. Lungs are clear to auscultation and appear unlabored Cardiac exam, Rhythm is regular.. No murmurs, rubs or gallops. Abdominal exam reveals normal bowel sounds, soft non tender, no masses Extremities are nonedematous and both pedal pulses are normal. Neurologic exam is alert and oriented, no focal loss of strength or sensation Skin is without bruises or rashes Psychologically is without concerns for anxiety or depression. Discharge Data Allergies Allergy/AdvReac Type Severity Reaction Status Date / Time No Known Allergies Allergy Verified 02/26/22 20:34 Consultations 02/26/22 22:30 ED Decision to Admit Stat Ordered Studies 02/26/22 20:32 CT abd pelvis wo con Urgent CT head/brain wo con Urgent 04/08/22 07:50 US abdominal aortic aneurysm Routine Hospital Course (1) Syncope: Patient with syncopal event which occurred while lifting a heavy box. Has not been feeling well or eating for the last 5 days - appears quite dehydrated on both physical exam and labs. Suspect orthostatic syncope. Upon review of his chart from [facility] he as a diagnosis of "Cardiac Aneurysm" - when asked, patient does not know of this history. He denies any cardiac history. Presently without symptoms. Echo without cardiac aneurysm and Abd u/s negative for AAA Orthostatic VS POSITIVE at [facility] - stop bp meds except atenolol (2) Acute head trauma: Patient hit head during his fall today. No GOODWIN, visual disturbance, nausea or neurological deficits. He is on ASA, no blood thinners. No focal deficits, spinal tenderness. No need for c-spine imaging by NEXUS criteria CT Head Negative for acute trauma (3) Anemia: Normochromic/normocytic anemia with Hgb=8.7, Hct=23.1. Patient denies previous history of anemia. No personal or family history of sickle cell disease, SS trait or thalassemia. Patient denies blood loss in the form of melena/hematochezia, hematuria or bruising. Elevated Tbili of 1.8, YEVGENIY present - platelets are normal. Patient reports having a colonoscopy around 6 years ago which was Negative. Heme NEG stools in ER. - iron studies, iron low normal, binding capacity low -normal B12 and Folate -unremarkable peripheral smear -bili mild elevation of direct and indirect with mild elevation of LFT, mono screen negative -normal LDH reduced likelihood of hemolysis -CBC in with lower hgb but stable in 8's -peripheral smear The overall findings are consistent with leukocytosis (neutrophilia) with a very mild left-shift and normocytic anemia. The leukocytosis could be consistent with an infectious process. I do not see morphologic features of a neoplastic or hemolytic (DIC) process. No organisms are identified. Target cells are typically associated with liver dysfunction. (4) YEVGENIY (acute kidney injury): Resolving Suspect multifactorial - patient appears very dehydrated on exam in setting of decreased oral intake. Also on Lisinopril, Spironolactone and HCTZ. He states he may have missed two days of medications while feeling ill. -UA abnormal for E coli uti (5) Elevated liver enzymes: HWW=562, ALT=89, Tbili=1.[address] Abdomen unremarkable. maybe medication affect, will recommend outpt follow up, bili has decreased may also be transient viral process or from hypotension, recommend follow up LFT's (6) Elevated random blood glucose level: Blood sugar of 230. No previous history of DM, other glucoses are normal - A1C 6.2 Code - Full per discussion with patient Total Time Total Time Spent Total Time Spent (In Minutes): it took greater than 30 minutes to prepare this discharge summary Discharge Plan Discharge Items [facility]position[facility] Reason For Visit: SYNCOPE Discharge Diagnosis: syncope due to orthostatic syncope E coli uti Condition on Discharge: Fair Activity: Per Instructions section Activity Comment: per fpc recommendations Non-emergency contact: Primary Care Provider Call non-emergency contact if: your symptoms worsen Follow-up/Referrals: Rayne HO [Primary Care Provider] - Diet: Regular Addtl Attending Provider Instructions: please complete a course of antibiotics for your urine infection take a multiple vitamin with iron a day see a blood specialist called a wireless team member for your anemia(low blood count) we have stopped many of your blood pressure medicines as your heart tests showed that you currently have no heart issues Pending Studies at Discharge: Yes Stand-Alone Forms: My [facility] Skilled Items Patient informed of condition?: Yes Discharge Level of Care: Other Communicable Disease: No Discharge Prognosis: Stable Lines: None Urinary Catheter: No Medications and DC Order Prescriptions: New atenolol 50 mg Tablet 50 mg PO DAILY Qty: 30 RF: 0 ciprofloxacin HCl [Cipro] 500 mg tablet 500 mg PO BID Qty: 12 RF: 0 Continued atorvastatin 40 mg Tablet 40 mg PO HS RF: 0 aspirin 81 mg Tablet,Chewable 81 mg PO DAILY RF: 0 Discontinued amlodipine 10 mg Tablet 10 mg PO DAILY RF: 0 lisinopril 40 mg Tablet 40 mg PO DAILY RF: 0 atenolol 100 mg Tablet 100 mg PO DAILY RF: 0 spironolacton-hydrochlorothiaz 25-25 mg Tablet 1 tab PO DAILY RF: 0 Discharge Orders: Discharge Order (Routine); Ordered 02/28/22 Ordered By: Iam Case/Other Patient Handouts: A1C Admission Data Admit Date/Time: 02/26/22 23:28 Attending Provider: Iam Vernon Admit Provider: Isaura Wolff Primary Care Provider: Rayne HO Other Providers: Isaura Wolff Other Interventions: Discharge Summary Assessment (RN) Last Done: 02/28/22 13:12 Coding Level of Care Code D/C DAY MANAGEMENT >30 MINS Diagnoses Syncope R55 Syncope type: unspecified Acute head trauma S09.90XA Encounter type: initial encounter Anemia D64.9 Anemia type: unspecified type YEVGENIY (acute kidney injury) N17.9 Elevated liver enzymes R74.8 Elevated random blood glucose level R73.09
== END 2022-02-28 15:54 | DRG 312 ==
LOC: ED 20:15 → 2W 02-27 00:01 → SUATTDRO 02-27 00:01 → 2W 02-27 01:10

== ENCOUNTER 2024-06-02 05:29 | Observation (INO) ==
[2024-06-02 06:27] LABS: Basophils # (auto) 0.03 K/uL (0.00-0.20); Basophils % (auto) 0.6 %; Eosinophils # (auto) 0.17 K/uL (0.00-0.50); Eosinophils % (auto) 3.4 %; Hematocrit (blood only) 34.4 % (42.0-52.0); Hemoglobin 12.6 g/dl (14.0-18.0); Immature Granulocytes # (auto) 0.01 K/uL (0.01-0.20); Immature Granulocytes % (auto) 0.2 %; Lymphocytes # (auto) 1.09 K/uL (1.20-3.40); Lymphocytes % (auto) 21.9 %; Mean Corpuscular Hemoglobin 31.3 pg (25.0-34.0); Mean Corpuscular Hgb Conc 36.6 g/dL (32.0-36.0); Mean Corpuscular Volume 85.6 fL (80.0-100.0); Mean Platelet Volume 12.1 fL (9.4-12.4); Monocytes # (auto) 0.63 K/uL (0.11-0.59); Monocytes % (auto) 12.7 %; Neutrophils # (auto) 3.05 K/uL (1.40-6.50); Neutrophils % (auto) 61.2 %; Platelet Count 174 K/uL (130-400); RDW Standard Deviation 37.5 fL (36.4-46.3); Red Blood Count 4.02 M/uL (4.70-6.10); White Blood Count 4.98 K/ul (4.8-10.8)
[2024-06-02 06:51] LABS: Albumin Globulin Ratio 1.1 (0.9-2); Albumin Level 3.9 gm/dl (3.4-5.0); BUN Creatinine Ratio 15.3 (10-20); Calcium 9.2 mg/dl (8.6-10.3); Creatinine Clr Calc Pharmacy 83.2 ml/min; Est GFR (African American) 97.4 ml/min; Est GFR (Non-African American) 84.1 ml/min; Globulin 3.5 gm/dl (2.5-4.0); Potassium 3.9 mmol/L (3.5-5.1); Total Protein 7.4 gm/dl (6.0-8.3)
--- NOTE | 2024-06-02 06:53 | Emergency Department Note ---
Impression & Plan Hypertension, Anemia, Elevated blood sugar ED Provider Note NAME: RASHIDA [id number] VINCENT AGE: 58 SEX: M : 1965 ARRIVES VIA: Ambulance INFORMANT: Patient ED PROVIDER(S): Nghia Cheek DO CHIEF COMPLAINT: Elevated blood pressure HPI: Patient is a 58-year-old male with a past medical history of hypertension who presents to the ER for an elevated blood pressure. He is currently in [facility] and per report from [facility] blood pressures have been in the 220s for the past 2 to 3 days. Recently started him on labetalol. He takes clonidine as well. He notes that his blood pressures are normally elevated and have been this way for years. Denies any headache or change in vision. No chest pain or shortness of breath. No nausea vomiting or diarrhea. No dysuria urgency or frequency. No other exacerbating or remitting factors. ADDITIONAL HISTORY OBTAINED: Additional history obtained from presenting [facility] as described above Chronic Medical/Social Conditions Affecting Care: Per HPI PAST MEDICAL HISTORY:See Below PAST SURGICAL HISTORY:See Below FAMILY HISTORY:See Below SOCIAL HISTORY:See Below HOME MEDICATIONS:See Below ALLERGIES:See Below VITALS:See Below PHYSICAL EXAMINATION: GENERAL: Sitting up in bed, alert, well appearing, well nourished, no distress, non-toxic EYE EXAM: normal conjunctiva. PERRL and EOM's grossly intact. OROPHARYNX: no exudate, no erythema, lips, buccal mucosa, and tongue normal and mucous membranes are moist NECK: supple, no nuchal rigidity, no adenopathy, non-tender LUNGS: Clear to auscultation. Normal chest wall mechanics HEART: no murmurs, S1 normal and S2 normal ABDOMEN: abdomen soft, non-tender, normo-active bowel sounds, no masses, no rebound or guarding. UPPER EXTREMITIES: upper extremities are grossly normal. LOWER EXTREMITIES: No pitting edema. NEURO EXAM: Normal sensorium, cranial nerves II-XII grossly intact, normal speech, no gross weakness of arms, no gross weakness of legs. MEDICAL DECISION MAKING: Patient is a 58-year-old male who presents ER for above-stated complaint. IV was established blood work was obtained. Labs show no significant leukocytosis. Faint anemia 12.6. INR unremarkable. BMP along with LFTs bilirubin was unremarkable. BSG was slightly elevated at 113. Blood pressures were in the 200s. With this patient was given IV hydralazine and trend down to 180. He is currently poorly controlled and managed. Discussed the case with the hospitalist for further evaluation management treatment. Consults/Care Managements Discussions: Per MDM Triage Nursing notes reviewed. Limited review of prior medical records performed Vital Signs: reviewed and remarkable for HTN Differential diagnosis: Cardiac ischemia, aortic dissection, pulmonary embolism, pneumothorax, pneumonia, pericarditis, myocarditis, esophageal rupture, GERD, cholecystitis, pancreatitis, musculoskeletal, as well as other pathologies. ER treatment provided: See below Diagnostics interpreted by me include EKG and cardiac monitoring as listed below: -Cardiac Monitoring: An order was placed for continuous cardiac monitoring. The monitor shows a rate of 70 with sinus rhythm. -ECG: Sinus rhythm rate of 69 Normal axis Septal Q waves QTc 424 Poor baseline throughout -Laboratory studies:Interpreted by me as stated above in MDM and shown below. Imaging studies: Xrays: As interpreted by me: Portable AP upright 1 view of the chest shows no focal obstructive CTs show: none Procedures:none Critical Care: None Past Med/Surg History Problem List (Updated 06/02/24 @ 12:36 by Nghia Cheek DO) Elevated blood sugar (Acute) Hypertension (Acute) Anemia (Acute) Medical History (Updated 06/02/24 @ 12:36 by Nghia Cheek DO) Hypertension Surgical History (Updated 02/27/22 @ 01:11 by Isaura Wolff DO) No significant past surgical history Family History (Updated 02/27/22 @ 01:11 by Isaura Wolff DO) Other Hypertension Social History (Updated 02/27/22 @ 01:11 by Isaura Wolff DO) Smoking Status: Never smoker Hx Alcohol Use: No Hx Substance Use: No Preferred Language: Palau[place] Feels Safe at Home: Yes Allergies Allergies Allergy/AdvReac Type Severity Reaction Status Date / Time No Known Allergies Allergy Verified 06/02/24 08:31 Home Meds Home Medications Medication Instructions Recorded Confirmed aspirin 81 mg chewable tablet 81 mg PO QAM 02/26/22 06/02/24 atorvastatin 40 mg tablet 40 mg PO HS 02/26/22 06/02/24 folic acid 1 mg tablet 1 mg PO QAM 06/02/24 06/02/24 hydralazine 50 mg tablet 50 mg PO TID 06/02/24 06/02/24 labetalol 300 mg tablet 300 mg PO TID 06/02/24 06/02/24 lisinopril 40 mg tablet 40 mg PO DAILY 06/02/24 06/02/24 multivitamin with min 2 tab PO QAM 06/02/24 06/02/24 no.36-iron,carbonyl-FA 16 mg iron-0.38 mg tablet (Geritol Complete) Results & Data (ED) Vital Signs Vital Signs - 24 hr 06/02/24 05:39 06/02/24 05:41 06/02/24 05:57 Temperature 37.2 C Temperature Source Oral Pulse Rate 71 67 68 Pulse Rate [Apical] Pulse Rhythm Regular Regular Pulse Rhythm [Apical] Pulse Strength Normal Pulse Strength [Apical] Respiratory Rate 14 16 Respiratory Effort / Characteristics Non-Labored Spontaneous Respiratory Depth Normal Respiratory Pattern Regular Blood Pressure 212/106 H Blood Pressure [Right Arm] Blood Pressure Mean 141 Blood Pressure Mean [Right Arm] Blood Pressure Position Lying Blood Pressure Position [Right Arm] Pulse Oximetry 98 99 Oxygen Delivery Method Room Air Room Air Sepsis Recent Fever Within 48 Hours No Sepsis New/Unexplained Change in Mental Status No Sepsis Action Taken by Nursing No Action Required 06/02/24 06:30 06/02/24 07:03 06/02/24 07:30 Temperature Temperature Source Pulse Rate 67 68 Pulse Rate [Apical] 70 Pulse Rhythm Pulse Rhythm [Apical] Regular Pulse Strength Pulse Strength [Apical] Normal Respiratory Rate 16 Respiratory Effort / Characteristics Non-Labored Spontaneous Respiratory Depth Normal Respiratory Pattern Regular Blood Pressure 195/107 H 196/97 H Blood Pressure [Right Arm] 201/106 H Blood Pressure Mean 136 130 Blood Pressure Mean [Right Arm] 137 Blood Pressure Position Blood Pressure Position [Right Arm] Lying Pulse Oximetry 100 99 97 Oxygen Delivery Method Room Air Room Air Room Air Sepsis Recent Fever Within 48 Hours Sepsis New/Unexplained Change in Mental Status Sepsis Action Taken by Nursing 06/02/24 08:30 06/02/24 09:03 06/02/24 09:33 Temperature Temperature Source Pulse Rate 69 70 Pulse Rate [Apical] 72 Pulse Rhythm Pulse Rhythm [Apical] Pulse Strength Pulse Strength [Apical] Respiratory Rate 18 16 16 Respiratory Effort / Characteristics Spontaneous Respiratory Depth Normal Respiratory Pattern Blood Pressure 159/87 H 154/87 H Blood Pressure [Right Arm] 159/98 H Blood Pressure Mean 111 109 Blood Pressure Mean [Right Arm] 118 Blood Pressure Position Blood Pressure Position [Right Arm] Sitting Pulse Oximetry 97 97 98 Oxygen Delivery Method Room Air Room Air Room Air Sepsis Recent Fever Within 48 Hours Sepsis New/Unexplained Change in Mental Status Sepsis Action Taken by Nursing Laboratory Data 06/02/24 05:40 06/02/24 05:40 Lab Results 06/02/24 Range/Units 05:40 WBC 4.98 (4.8-10.8) K/ul RBC 4.02 L (4.70-6.10) M/uL Hgb 12.6 L (14.0-18.0) g/dl Hct 34.4 L (42.0-52.0) % MCV 85.6 (80.0-100.0) fL MCH 31.3 (25.0-34.0) pg MCHC 36.6 H (32.0-36.0) g/dL RDW Std Deviation 37.5 (36.4-46.3) fL RDW Coeff of Razia 12.0 (11.5-14.5) % Plt Count 174 (130-400) K/uL MPV 12.1 (9.4-12.4) fL Immature Gran % (Auto) 0.2 % Neut % (Auto) 61.2 % Lymph % (Auto) 21.9 % Mckenzie % (Auto) 12.7 % Eos % (Auto) 3.4 % Baso % (Auto) 0.6 % Neut # (Auto) 3.05 (1.40-6.50) K/uL Lymph # (Auto) 1.09 L (1.20-3.40) K/uL Mckenzie # (Auto) 0.63 H (0.11-0.59) K/uL Eos # (Auto) 0.17 (0.00-0.50) K/uL Baso # (Auto) 0.03 (0.00-0.20) K/uL Immature Gran # (Auto) 0.01 (0.01-0.20) K/uL PT 11.1 (9.0-12.0) Seconds INR 1.0 (0.9-1.1) APTT 26 (21-31) Seconds PTT Ratio 1.0 Sodium 141 (136-145) mmol/L Potassium 3.9 (3.5-5.1) mmol/L Chloride 105 (98-107) mmol/L Carbon Dioxide 28 (21-32) mmol/L Anion Gap 8 (3-11) BUN 15 (6-23) mg/dl Creatinine 0.98 (0.6-1.4) mg/dl Est Cr Clr Drug Dosing 83.2 ml/min Est GFR ( Amer) 97.4 ml/min Est GFR (Non-Af Amer) 84.1 ml/min BUN/Creatinine Ratio 15.3 (10-20) Glucose 113 H (70-99(Fasting)) mg/dl Calcium 9.2 (8.6-10.3) mg/dl Total Bilirubin 1.0 (0.2-1.0) mg/dl AST 18 (13-39) U/L ALT 16 (7-52) U/L Alkaline Phosphatase 60 (34-104) U/L Troponin I High Sens 12.5 (0-20) pg/ml Total Protein 7.4 (6.0-8.3) gm/dl Albumin 3.9 (3.4-5.0) gm/dl Globulin 3.5 (2.5-4.0) gm/dl Albumin/Globulin Ratio 1.1 (0.9-2) Administered Medications Discontinued Medications Amlodipine Besylate (Amlodipine Besylate 5 Mg Tab) 10 mg PO NOW ONE Stop: 06/02/24 08:16 Last Admin: 06/02/24 08:35 Dose: 10 mg Documented By: EMILIANO Clonidine HCl (Clonidine Hcl 0.1 Mg Tab) 0.1 mg PO ONE ONE Stop: 06/02/24 08:16 Last Admin: 06/02/24 08:35 Dose: 0.1 mg Documented By: EMILIANO Hydralazine HCl (Hydralazine Hcl 20 Mg/Ml Vial) 10 mg IV NOW STA Stop: 06/02/24 07:43 Last Admin: 06/02/24 07:50 Dose: 10 mg Documented By: EMILIANO Imaging Data Radiologist's Impression: Chest X-Ray 06/02/24 05:56 SINGLE VIEW CHEST CLINICAL HISTORY: Hypertension FINDINGS: 2 AP, portable, upright chest radiographs are compared to study dated 02/26/2022. Correlation is made with PET/CT dated 04/09/2022. The cardiomediastinal silhouette is unremarkable. Emphysema and chronic interstitial thickening is similar to previous. No airspace consolidation or pleural effusion is identified. Nipple shadows project over the lower lobes. No pneumothorax is seen. The bony thorax is grossly intact. IMPRESSION: Emphysematous change with no active disease in the chest. ACT 112: Negative or not required by law. Electronically signed by: Tiago Longo M.D. 06/02/2024 7:03 AM Discharge Plan Visit Data Chief Complaint: Hypertension Stated Complaint: Hypertension ED Provider: Nghia Cheek Discharge Problem: Hypertension, Anemia, Elevated blood sugar Discharge Instructions Interventions: ED Discharge Assessment Last Done: 06/02/24 12:04 Discharge Problem: Hypertension Qualifiers: Hypertension type: unspecified Qualified Code(s): I10 - Essential (primary) hypertension Anemia Qualifiers: Anemia type: unspecified type Qualified Code(s): D64.9 - Anemia, unspecified
[2024-06-02 06:57] LABS: Troponin I High Sensitivity 12.5 pg/ml (0-20)
--- NOTE | 2024-06-02 07:04 | XRay Report ---
SINGLE VIEW CHEST CLINICAL HISTORY: Hypertension FINDINGS: 2 AP, portable, upright chest radiographs are compared to study dated 02/26/2022. Correlation is made with PET/CT dated 04/09/2022. The cardiomediastinal silhouette is unremarkable. Emphysema and chronic interstitial thickening is similar to previous. No airspace consolidation or pleural effusio n is identified. Nipple shadows project over the lower lobes. No pneumothorax is seen. The bony thora x is grossly intact. IMPRESSION: Emphysematous change with no active disease in the chest. ACT 112: Negative or not required by law. Electronically signed by: Tiago Longo M.D. 06/02/2024 7:03 AM
[2024-06-02 07:05] LABS: Partial Thromboplastin Time 26 Seconds (21-31); Prothrombin Time 11.1 Seconds (9.0-12.0)
[2024-06-02] MEDS: hydrALAZINE HCL 20 MG/ML VIAL IV STA (07:50)
--- NOTE | 2024-06-02 08:11 | History & Physical Report ---
Date of Service June 02, 2024 Assessment & Plan (1) Hypertensive urgency: Plan: 58-year-old with history of hypertension admitted with hypertensive urgency. He is entirely asymptomatic. Unclear what precipitated the issue this week, he denies any dietary indiscretions with respect to salt, has been feeling well, had not had any recent medication changes and present staff notes he is taken at least 99% of his prescribed doses of antihypertensive meds presenting BP in the ED was 222/124, improved to 180/106 after 10 mg of IV hydralazine. - Initially I could not reach the present to confirm his med list so ordered amlodipine 10 mg p.o. and clonidine 0.1 mg p.o., following that his blood pressure was well-controlled from [id number] systolic throughout the day - mid afternoon obtained med list includes hydralazine 50 mg 3 times daily possibly new, labetalol 300 mg 3 times daily which is new, lisinopril 40 mg daily - he has had good response to amlodipine so I will continue this and resume his lisinopril and hydralazine. 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 He had negative PET/CT. Bone marrow biopsy was reassuring. appears he was lost to follow-up. He remains asymptomatic and only mild anemia improved compared to 2021. He should schedule follow-up with cancer center to reestablish care and surveillance for this issue (3) Hypertension: Plan: longstanding, see above (4) Hyperlipidemia: Plan: continue atorvastatin Plan emphysematous changes were noted on his checks x-ray however he denies any pulmonary symptoms and does not carry diagnosis of COPD DVT prophylaxisSCDs observation, possible discharge tomorrow if blood pressure adequately controlled History of Present Illness Chief Complaint: uncontrolled high blood pressure for 3 days Primary Care Provider: [facility] 58 y/o with hypertension running high for several days, reportedly has been in 200s for 3 days despite adding labetalol and hydralazine, also one-time dose of clonidine. Mr. Plummer cannot provide much additional history. He states he has been taking his medications regularly and has not had any symptoms including no headache lightheadedness or double vision, no chest pain no shortness of breath, no neurological symptoms such as numbness weakness or tingling of face arms or legs, no vision changes. I spoke with staff at the [facility] they said that he takes 100% of his medication doses and is not usually seen in the [facility] for any reason. I obtained his med list. He was last admitted at this hospital in 2021 for a syncopal episode. I reviewed old records from [facility] and he was diagnosed with a plasma cell dyscrasia that appears to have been low-level. every 4-month follow-up was recommended, however he has not been seen since March 2022. In ED presenting BP 212/106. Given hydralazine 10 mg IV With significant improvement in BP to 180s EKG - LVH Allergies Allergy/AdvReac Type Severity Reaction Status Date / Time No Known Allergies Allergy Verified 06/02/24 08:31 Home Medications Medication Instructions Recorded Confirmed Type aspirin 81 mg chewable tablet 81 mg PO QAM 02/26/22 06/02/24 History atorvastatin 40 mg tablet 40 mg PO HS 02/26/22 06/02/24 History folic acid 1 mg tablet 1 mg PO QAM 06/02/24 06/02/24 History hydralazine 50 mg tablet 50 mg PO TID 06/02/24 06/02/24 History labetalol 300 mg tablet 300 mg PO TID 06/02/24 06/02/24 History lisinopril 40 mg tablet 40 mg PO DAILY 06/02/24 06/02/24 History multivitamin with min 2 tab PO QAM 06/02/24 06/02/24 History no.36-iron,carbonyl-FA 16 mg iron-0.38 mg tablet (Geritol Complete) Past Med/Surg History Problem List Hyperlipidemia Hypertensive urgency Plasma cell dyscrasia Elevated blood sugar (Acute) Hypertension (Acute) Anemia (Acute) Medical History Hypertension Surgical History No significant past surgical history Family History Other Hypertension Social History Smoking Status: Never smoker Second Hand Exposure: No; Do You Dip or Chew Tobacco: No; Tobacco Cessation Education Requested by Patient: No Hx Alcohol Use: No Hx Substance Use: No Preferred Language: Cantonese Lithuanian Communication Ability: Effective Senior Storage Administrator Required: No Beliefs That Will Affect Care: None Current Living Situation: Other Current Living Situation Comment: [facility] Other Information That Helps Us Care for You: No Feels Safe at Home: Yes Assistive Devices: None Review of Systems 2 Review of Systems: All systems reviewed & are unremarkable except as noted in HPI & below Physical Exam 2 Physical Exam: PHYSICAL EXAMINATION Last 24h vital signs reviewed, see documentation in flowsheet General: comfortable appearing, no distress HEENT: Normocephalic, atraumatic, pupils round and equal, sclerae anicteric, no conjunctival injection, moist mucus membranes Lungs: Normal respiratory effort. Clear to auscultation bilaterally. No RRW Heart: Regular rate and rhythm, no murmurs. No JVD Abdomen: Soft, nontender, nondistended. Bowel sounds present. Extremities: Warm, dry, well-perfused. No extremity edema. Neuro: Alert and oriented x 4, face symmetric, moves 4 extremities well Psych: restricted affect and normal behavior Results & Data Results & Data Vital Signs (Past 12 Hours) Vital Signs Temp Pulse Pulse Resp BP BP Pulse Ox 06/02/24 07:03 67 195/107 H 99 06/02/24 06:30 70 16 201/106 H 100 06/02/24 05:57 68 16 99 06/02/24 05:41 67 06/02/24 05:39 37.2 C 71 14 212/106 H 98 O2 Del Method 06/02/24 07:03 Room Air 06/02/24 06:30 Room Air 06/02/24 05:57 Room Air 06/02/24 05:41 06/02/24 05:39 Room Air Laboratory Results 06/02/24 05:40 06/02/24 05:40 Diagnostic Findings Chest X-Ray 06/02/24 05:56 SINGLE VIEW CHEST CLINICAL HISTORY: Hypertension FINDINGS: 2 AP, portable, upright chest radiographs are compared to study dated 02/26/2022. Correlation is made with PET/CT dated 04/09/2022. The cardiomediastinal silhouette is unremarkable. Emphysema and chronic interstitial thickening is similar to previous. No airspace consolidation or pleural effusion is identified. Nipple shadows project over the lower lobes. No pneumothorax is seen. The bony thorax is grossly intact. IMPRESSION: Emphysematous change with no active disease in the chest. ACT 112: Negative or not required by law. Electronically signed by: Tiago Longo M.D. 06/02/2024 7:03 AM ECG Additional Comments: I personally reviewed the EKG tracingnormal sinus rhythm LVH with strain pattern, possible anteroseptal Q's Code Status & VTE Plan VTE Prophylaxis Plan VTE Prophylaxis will be ordered: Yes Reason for no VTE drug order: Treatment not indicated PG Care Time/CCT Total # of Minutes Spent Total Time Spent with Patient: Total time spent is greater than 50% in coordination of care (as documented) at patient's floor/unit and/or counseling patient: Coding Level of Care Code 96683 INT INP/OBS CARE 2/55MIN Diagnoses Hypertensive urgency I16.0 Plasma cell dyscrasia E88.09 Hypertension I10 Hypertension type: unspecified Hyperlipidemia E78.5 (3) Hypertension Hypertension type: unspecified Qualified Code(s): I10 - Essential (primary) hypertension
[2024-06-02] MEDS: cloNIDine HCL 0.1 MG TAB PO ONE (08:35)
[2024-06-02] MEDS: amLODIPine BESYLATE 5 MG TAB PO ONE (08:35)
[2024-06-02] MEDS ORDERED: NITROGLYCERIN SL 0.4 MG/TAB TAB SL PRN (12:08)
[2024-06-02] MEDS ORDERED: ALUMINUM/MAGNESIUM SUSP 30 ML UDC PO PRN (12:08)
[2024-06-02] MEDS ORDERED: MAGNESIUM HYDROXIDE SUSP 30 ML UDC PO PRN (12:08)
[2024-06-02] MEDS ORDERED: ONDANSETRON INJ 2 MG/ML 2 ML VIAL IV PRN (12:08)
[2024-06-02] MEDS ORDERED: ACETAMINOPHEN 325 MG TAB PO PRN (12:08)
[2024-06-02] MEDS ORDERED: NITROGLYCERIN 2% OINTMENT 30GM TUBE EXT PRN (12:08)
[2024-06-02] MEDS ORDERED: POLYETHYLENE (MIRALAX) 17 GM PACK PO PRN (12:08)
--- NOTE | 2024-06-02 13:37 | Electrocardiogram Report ---
Test Reason : Blood Pressure : / mmHG Vent. Rate : 069 BPM Atrial Rate : 069 BPM P-R Int : 158 ms QRS Dur : 076 ms QT Int : 396 ms P-R-T Axes : 072 045 001 degrees QTc Int : 424 ms Normal sinus rhythm Left ventricular hypertrophy with repolarization abnormality Abnormal ECG When compared with ECG of 26-FEB-2022 21:08, ST now depressed in Inferior leads Nonspecific T wave abnormality no longer evident in Anterior leads Confirmed by Sorin Trimble ([id number]) on 06/02/2024 1:37:19 PM Referred By: Confirmed By:Ivan Trimble
[2024-06-02] MEDS: cloNIDine HCL 0.1 MG TAB PO SCH (13:59)
[2024-06-02] MEDS ORDERED: cloNIDine HCL 0.1 MG TAB PO SCH (14:00)
[2024-06-02] MEDS ORDERED: cloNIDine HCL 0.1 MG TAB PO PRN (15:51)
[2024-06-02] MEDS: lisinopril 40 MG TAB PO SCH (16:27)
[2024-06-02] MEDS: hydrALAZINE TAB 50 MG TAB PO SCH (20:24)
[2024-06-02] MEDS: ATORVASTATIN 40 MG TAB PO SCH (20:24)
[2024-06-03 06:29] LABS: BUN Creatinine Ratio 13.5 (10-20); Creatinine Clr Calc Pharmacy 83.4 ml/min; Est GFR (African American) 90.7 ml/min; Est GFR (Non-African American) 78.2 ml/min
[2024-06-03] MEDS: amLODIPine BESYLATE 5 MG TAB PO SCH (08:15)
[2024-06-03] MEDS: ASPIRIN 81 MG ECTAB PO SCH (08:16)
[2024-06-03] MEDS: hydrALAZINE HCL 25 MG TAB PO SCH (08:16)
[2024-06-03] MEDS: hydroCHLOROthiazide 25 MG TAB PO SCH (10:44)
--- NOTE | 2024-06-03 12:44 | Discharge Summary ---
Discharge Summary Date of Service June 03, 2024 Principal Dx & Hospital Course #1 = Principal Diagnosis (1) Hypertensive urgency: 58-year-old with history of hypertension admitted with hypertensive urgency. He is entirely asymptomatic. Unclear what precipitated the issue this week, he denies any dietary indiscretions with respect to salt, has been feeling well, had not had any recent medication changes and present staff notes he is taken at least 99% of his prescribed doses of antihypertensive meds presenting BP in the ED was 222/124, improved to 180/106 after 10 mg of IV hydralazine. - Initially I could not reach the present to confirm his med list so ordered amlodipine 10 mg p.o. and clonidine 0.1 mg p.o., following that his blood pressure was well-controlled from [id number] systolic throughout the day - mid afternoon obtained med list includes hydralazine 50 mg 3 times daily possibly new, labetalol 300 mg 3 times daily which is new, lisinopril 40 mg daily - he has had good response to amlodipine so I will continue this and resume his lisinopril and hydralazine. heart rates have been in 50s-60s (asymptomatic) so I did not continue the labetalol. Added HCTZ in case he is salt sensitive. Past 24h BP has been reasonably well controlled 160s-180s/800s-90s with no PRNs and remained asymptomatic. Able to return to [facility] today, I spoke with CRISTAL Jaeger. - continue to work on normalizing BP over several weeks. Hydralazine could be increased. HCTZ could be changed to spironolactone/HCTZ. Likely would not tolerate B-lakshmi, or only at low dose due to heart rate. Clonidine patch would be nice option, but not available at the [facility]. Last option for resistant hypertension would be minoxidil. (2) Plasma cell dyscrasia: this was diagnosed in 2021 at cancer center during workup for anemia when he was found to have an MGUS. He had negative PET/CT. Bone marrow biopsy was reassuring. appears he was lost to follow-up. He remains asymptomatic and only mild anemia improved compared to 2021. I confirmed he has been followed by the in-house heme onc lean process deployment consultant at the [facility] for this issue. (3) Hypertension: longstanding, see above (4) Hyperlipidemia: continue atorvastatin Plan emphysematous changes were noted on his checks x-ray however he denies any pulmonary symptoms and does not carry diagnosis of COPD reported history of "cardiac aneurysm" on the chart - he is unaware of this, prior admission in 2021 he had abdominal ultrasound that was negative for AAA and Echocardiogram that was normal. Admission HPI Per Admitting Provider 58 y/o with hypertension running high for several days, reportedly has been in 200s for 3 days despite adding labetalol and hydralazine, also one-time dose of clonidine. Mr. Plummer cannot provide much additional history. He states he has been taking his medications regularly and has not had any symptoms including no headache lightheadedness or double vision, no chest pain no shortness of breath, no neurological symptoms such as numbness weakness or tingling of face arms or legs, no vision changes. I spoke with staff at the [facility] they said that he takes 100% of his medication doses and is not usually seen in the [facility] for any reason. I obtained his med list. He was last admitted at this hospital in 2021 for a syncopal episode. I reviewed old records from cancer [facility] and he was diagnosed with a plasma cell dyscrasia that appears to have been low-level. every 4-month follow-up was recommended, however he has not been seen since March 2022. In ED presenting BP 212/106. Given hydralazine 10 mg IV With significant improvement in BP to 180s EKG - LVH Discharge Exam PHYSICAL EXAMINATION Last 24h vital signs reviewed, see documentation in flowsheet General: comfortable appearing, no distress HEENT: Normocephalic, atraumatic, pupils round and equal, sclerae anicteric, no conjunctival injection, moist mucus membranes Lungs: Normal respiratory effort. Clear to auscultation bilaterally. No RRW Heart: Regular rate and rhythm, no murmurs. No JVD Abdomen: Soft, nontender, nondistended. Bowel sounds present. Extremities: Warm, dry, well-perfused. No extremity edema. Neuro: Alert and oriented x 4, face symmetric, moves 4 extremities well Psych: restricted affect and normal behavior Updated Medication List Medication Instructions Recorded Confirmed Type aspirin 81 mg chewable tablet 81 mg PO QAM 02/26/22 06/02/24 History atorvastatin 40 mg tablet 40 mg PO HS 02/26/22 06/02/24 History folic acid 1 mg tablet 1 mg PO QAM 06/02/24 06/02/24 History hydralazine 50 mg tablet 50 mg PO TID 06/02/24 06/02/24 History labetalol 300 mg tablet 300 mg PO TID 06/02/24 06/02/24 History lisinopril 40 mg tablet 40 mg PO DAILY 06/02/24 06/02/24 History multivitamin with min 2 tab PO QAM 06/02/24 06/02/24 History no.36-iron,carbonyl-FA 16 mg iron-0.38 mg tablet (Geritol Complete) Hospital Stay Data Consultations 06/02/24 07:58 ED Decision to Admit Stat Diagnostic Imagining Performed Chest X-Ray 06/02/24 05:56 SINGLE VIEW CHEST CLINICAL HISTORY: Hypertension FINDINGS: 2 AP, portable, upright chest radiographs are compared to study dated 02/26/2022. Correlation is made with PET/CT dated 04/09/2022. The cardiomediastinal silhouette is unremarkable. Emphysema and chronic interstitial thickening is similar to previous. No airspace consolidation or pleural effusion is identified. Nipple shadows project over the lower lobes. No pneumothorax is seen. The bony thorax is grossly intact. IMPRESSION: Emphysematous change with no active disease in the chest. ACT 112: Negative or not required by law. Electronically signed by: Tiago Longo M.D. 06/02/2024 7:03 AM EKG - NSR, LVH with associated repolarization abnormality 06/03/24 Range/Units 05:44 Sodium 141 (136-145) mmol/L Potassium 4.0 (3.5-5.1) mmol/L Chloride 108 H (98-107) mmol/L Carbon Dioxide 26 (21-32) mmol/L Anion Gap 7 (3-11) BUN 14 (6-23) mg/dl Creatinine 1.04 (0.6-1.4) mg/dl Est Cr Clr Drug Dosing 83.4 ml/min Est GFR ( Amer) 90.7 ml/min Est GFR (Non-Af Amer) 78.2 ml/min BUN/Creatinine Ratio 13.5 (10-20) Glucose 99 (70-99(Fasting)) mg/dl Calcium 9.0 (8.6-10.3) mg/dl Pending Results Patient Have Any Pending Studies at Discharge: No Discharge Instructions Given to Patient (Per Discharging Provider) Blood pressure has been controlled SBPs 160-180/80s-90s past 24h on this oral regimen with no PRN doses. May have some improvement over next 48h as meds reach steady-state. May use clonidine po as needed for uncontrolled hypertension. Heart rates have been in 50s-60s (asymptomatic) so B-lakshmi was not used. Might be able to tolerate low dose. Continue to normalize BP control over next 1-3 weeks Follow up per routine with in-house heme/onc [employer] process deployment consultant Total Time Total Time Spent Total Time Spent (In Minutes): I personally spent: 40 minutes today on clinical care activities including: reviewing chart notes and vital signs examining and counseling the patient discussion with his primary care provider at [facility] writing orders, discharge instructions documentation Coding Level of Care Code 51791 INP/OBS DISCH >30 MIN Diagnoses Hypertensive urgency I16.0 Plasma cell dyscrasia E88.09 Hypertension I10 Hypertension type: unspecified Hyperlipidemia E78.5
[2024-06-03] MEDS ORDERED: lisinopril 40 MG TAB PO SCH (21:00)
== END 2024-06-03 14:19 ==
LOC: EDINP 05:29 → ED 05:29 → 2S 12:04